=== PATIENT | male | born 1985 | race African-American/Black ===

== ENCOUNTER 2017-12-16 22:01 | Inpatient (IN) | payer SELFPAY ==
[~2017-12-16] VITALS: Ht 175.3 cm; Wt 79.3 kg
[~2017-12-16 22:01] MED LIST: DIVA500T35 PO; OLAN10TA3 PO
[2017-12-16] MEDS ORDERED: ZOLPIDEM TARTRATE 10 MG TABLET PO PRN (23:15)
[2017-12-17] MEDS ORDERED: BREX2TAB PO
[2017-12-17] MEDS: LORazepam 2 MG TABLET PO PRN ×2 (00:43→09:17)
[2017-12-17 01:24] LABS: BASOPHILS % (AUTO) 0.5 % (0.0-2.0); EOSINOPHILS % (AUTO) 0.1 % (1.0-6.0); HEMATOCRIT 48.5 % (41-53); HEMOGLOBIN 16.9 g/dL (13.5-17.5); LYMPHOCYTES # (AUTO) 1.9 K/uL (1.0-4.8); LYMPHOCYTES % (AUTO) 19.8 % (22.0-44.0); MEAN CORPUSCULAR HGB CONC 34.8 G/dL (31.0-37.0); MEAN CORPUSCULAR VOLUME 86 fL (80-100); MONOCYTES # (AUTO) 0.8 K/uL (0.1-1.0); MONOCYTES % (AUTO) 8.1 % (2.0-9.0); NEUTROPHILS % (AUTO) 71.5 % (40.0-70.0); PLATELET COUNT (AUTO) 212 K/uL (150-450); RED BLOOD CELL COUNT(AUTO) 5.62 MIL/uL (4.50-5.90); RED CELL DISTRIBUTION WIDTH 12.8 % (11.5-14.5)
[2017-12-17 01:48] LABS: ANION GAP 13 mmol/L (8-16); CALCIUM, TOTAL 10.4 mg/dL (8.8-10.5); CARBON DIOXIDE 27 mmol/L (22-29); CHLORIDE 104 mmol/L (98-107); CREATININE 1.07 mg/dL (0.60-1.30); GLOMERULAR FILTR. RATE CALC > 60 mL/min (>60); GLUCOSE,RANDOM 129 mg/dL (70-110); POTASSIUM 4.4 mmol/L (3.5-5.1); SODIUM SERUM 144 mmol/L (136-145); UREA NITROGEN, BLOOD 20 mg/dL (7-18)
[2017-12-17 01:53] LABS: ALANINE AMINOTRANSFERASE 50 U/L (12-78); ALBUMIN 4.2 g/dL (3.4-5.0); ALKALINE PHOSPHATASE 88 U/L (46-116); ASPARTATE AMINOTRANSFERASE 19 U/L (15-37); BILIRUBIN,TOTAL 0.9 mg/dL (0.1-1.0); TOTAL PROTEIN, SERUM 8.6 g/dL (6.4-8.2)
[2017-12-17 01:54] LABS: VALPROIC ACID < 3 mcg/mL (50-100)
[2017-12-17 03:11] LABS: CHOL/HDL RATIO 4.6 (4.2-7.3); CHOLESTEROL 253 mg/dL (131-200); HDL CHOLESTEROL 55 mg/dL (40-60); LDL CHOL (CALC.) 185 mg/dL (0-130); TRIGLYCERIDES 64 mg/dL (15-150)
[2017-12-17] MEDS: HALOPERIDOL 5 MG TABLET PO PRN (09:17)
[2017-12-17] MEDS ORDERED: ACETAMINOPHEN 500 MG TABLET PO ONE (12:30)
[2017-12-17 20:12] VITALS: BP 134/98
[2017-12-18] MEDS ORDERED: -PHARMACY VACCINE NOTE- MISC ONE (04:30)
[2017-12-18] MEDS ORDERED: INFLUENZA VIRUS VACCINE QVS 2017-18 (3YR+)/PF 60 MCG/0.5 ML SYRINGE IM ONE (04:30)
[2017-12-18 08:35] VITALS: BP 136/74
[2017-12-18] MEDS: LORazepam 2 MG TABLET PO PRN (09:07)
[2017-12-18] MEDS: HALOPERIDOL 5 MG TABLET PO PRN (09:16)
[2017-12-18] MEDS ORDERED: LOPERAMIDE HCL 2 MG CAPSULE PO PRN (12:15)
[2017-12-18] MEDS ORDERED: GuaiFENesin/D-METHORPHAN [SUGAR-FREE] 200-20MG/10 ML SYRUP UDCUP PO PRN (12:15)
[2017-12-18] MEDS ORDERED: PALIPERIDONE PALMITATE 234 MG/1.5 ML SYRINGE IM ONE (12:15)
[2017-12-18] MEDS ORDERED: MAG HYDROX/AL HYDROX/SIMETH ES 30 ML SUSPENSION UDCUP PO PRN (12:15)
[2017-12-18] MEDS ORDERED: HydrOXYzine PAMOATE 50 MG CAPSULE PO PRN (12:15)
[2017-12-18] MEDS ORDERED: MAGNESIUM HYDROXIDE SUSPENSION 30 ML UDCUP PO PRN (12:15)
[2017-12-18] MEDS ORDERED: ACETAMINOPHEN 325 MG TABLET PO PRN (12:15)
[2017-12-18] MEDS ORDERED: TUBERCULIN, PURIFIED PROTEIN DERIVATIVE 5 TU/0.1 ML SYG ID ONE (12:15)
[2017-12-18] MEDS ORDERED: PROMETHAZINE HCL 25 MG TABLET PO PRN (12:15)
[2017-12-18] MEDS: THIAMINE HCL 100 MG TABLET PO SCH (17:04)
[2017-12-18 19:55] VITALS: BP 131/86
[2017-12-18] MEDS: DIVALPROEX SODIUM 500 MG ER TABLET PO SCH (20:35)
[2017-12-18] MEDS ORDERED: PALIPERIDONE 3 MG ER TABLET PO SCH (21:00)
[2017-12-19] MEDS: LORazepam 2 MG TABLET PO PRN ×2 (08:14→13:06)
[2017-12-19] MEDS: MULTIVITAMINS WITH MINERALS, THERAPEUTIC TABLET PO SCH (08:14)
[2017-12-19] MEDS: THIAMINE HCL 100 MG TABLET PO SCH ×2 (08:14→20:23)
[2017-12-19] MEDS: FOLIC ACID 1 MG TABLET PO SCH (08:14)
[2017-12-19] MEDS: ATORVASTATIN CALCIUM 40 MG TABLET PO SCH (08:17)
[2017-12-19] MEDS: PALIPERIDONE 1.5 MG ER TABLET PO PRN (13:06)
[2017-12-19] MEDS ORDERED: PALI156D IM (15:40)
[2017-12-19] MEDS ORDERED: DIVA500T52 PO (15:40)
[2017-12-19] MEDS: DIVALPROEX SODIUM 500 MG ER TABLET PO SCH (20:28)
[2017-12-20] MEDS: LORazepam 2 MG TABLET PO PRN (07:49)
[2017-12-20] MEDS: PALIPERIDONE 1.5 MG ER TABLET PO PRN (07:49)
[2017-12-20 08:21] VITALS: BP 117/76
[2017-12-20] MEDS: FOLIC ACID 1 MG TABLET PO SCH (08:31)
[2017-12-20] MEDS: ATORVASTATIN CALCIUM 40 MG TABLET PO SCH (08:31)
[2017-12-20] MEDS: THIAMINE HCL 100 MG TABLET PO SCH ×2 (08:31→16:28)
[2017-12-20] MEDS: MULTIVITAMINS WITH MINERALS, THERAPEUTIC TABLET PO SCH (08:31)
[2017-12-20] MEDS ORDERED: ATOR40TA28 PO (12:10)
[2017-12-22] MEDS ORDERED: PALIPERIDONE PALMITATE 156 MG/ML SYRINGE IM ONE (09:00)
== END 2017-12-20 16:45 | disposition home or self-care (01) | DRG 885 ==
LOC: EMS 22:05 → 3EC 12-17 18:50
PROVIDERS: ADMIT Psychiatry & Neurology Psychiatry; ATTEND Psychiatry & Neurology Psychiatry
DX: F20.0 Paranoid schizophrenia (principal); Z91.14 Patient's other noncompliance with medication regimen; E78.5 Hyperlipidemia, unspecified; Z28.21 Immunization not carried out because of patient refusal; Z59.9 Problem related to housing and economic circumstances, unspecified; Z65.3 Problems related to other legal circumstances; Z79.899 Other long term (current) drug therapy; Z91.19 Patient's noncompliance with other medical treatment and regimen; F32.9 Major depressive disorder, single episode, unspecified
CPT/HCPCS: 83036; 99285; G0480

== ENCOUNTER 2018-02-06 12:28 | Emergency (ER) | payer MEDICAID ==
[~2018-02-06] VITALS: Ht 172.7 cm; Wt 81.8 kg
[~2018-02-06 12:28] MED LIST changes: +ATOR40TA28 PO; -DIVA500T35 PO; +DIVA500T52 PO; -OLAN10TA3 PO; +PALI156D IM
[2018-02-06 12:33] VITALS: BP 137/70
== END 2018-02-06 13:31 | disposition left against medical advice (07) ==
LOC: EMS 12:29
DX: F41.9 Anxiety disorder, unspecified (principal); F31.9 Bipolar disorder, unspecified; F20.9 Schizophrenia, unspecified; Z53.21 Procedure and treatment not carried out due to patient leaving prior to being seen by health care provider

== ENCOUNTER 2018-03-11 08:22 | Inpatient (IN) | payer MEDICAID, OTHER ==
[~2018-03-11] VITALS: Ht 175.3 cm; Wt 82.0 kg
[2018-03-11] MEDS ORDERED: OLAN10TA3 PO (08:44)
[2018-03-11 08:50] LABS: BASOPHILS % (AUTO) 0.7 % (0.0-2.0); EOSINOPHILS % (AUTO) 0.2 % (1.0-6.0); HEMATOCRIT 45.7 % (41-53); HEMOGLOBIN 16.3 g/dL (13.5-17.5); LYMPHOCYTES # (AUTO) 1.8 K/uL (1.0-4.8); LYMPHOCYTES % (AUTO) 26.4 % (22.0-44.0); MEAN CORPUSCULAR HEMOGLOBIN 30.6 pg (26.0-34.0); MEAN CORPUSCULAR HGB CONC 35.7 G/dL (31.0-37.0); MEAN CORPUSCULAR VOLUME 86 fL (80-100); MONOCYTES # (AUTO) 0.7 K/uL (0.1-1.0); MONOCYTES % (AUTO) 10.8 % (2.0-9.0); NEUTROPHILS # (AUTO) 4.3 K/uL (1.8-7.7); NEUTROPHILS % (AUTO) 61.9 % (40.0-70.0); PLATELET COUNT (AUTO) 236 K/uL (150-450); RED BLOOD CELL COUNT(AUTO) 5.32 MIL/uL (4.50-5.90)
[2018-03-11 08:55] LABS: ANION GAP 17 mmol/L (8-16); CALCIUM, TOTAL 9.5 mg/dL (8.8-10.5); CARBON DIOXIDE 20 mmol/L (22-29); CHLORIDE 105 mmol/L (98-107); CREATININE 0.96 mg/dL (0.60-1.30); GLOMERULAR FILTR. RATE CALC > 60 mL/min (>60); GLUCOSE,RANDOM 108 mg/dL (70-110); POTASSIUM 3.5 mmol/L (3.5-5.1); SODIUM SERUM 142 mmol/L (136-145); UREA NITROGEN, BLOOD 23 mg/dL (7-18)
[2018-03-11 09:01] LABS: ALANINE AMINOTRANSFERASE 55 U/L (12-78); ALBUMIN 4.3 g/dL (3.4-5.0); ALKALINE PHOSPHATASE 74 U/L (46-116); ASPARTATE AMINOTRANSFERASE 26 U/L (15-37); BILIRUBIN,TOTAL 0.9 mg/dL (0.1-1.0); TOTAL PROTEIN, SERUM 8.9 g/dL (6.4-8.2)
[2018-03-11 11:05] LABS: VALPROIC ACID < 3 mcg/mL (50-100)
[2018-03-11] MEDS ORDERED: HALOPERIDOL 5 MG TABLET PO PRN (11:45)
[2018-03-12] MEDS: RisperiDONE 2 MG TABLET PO SCH ×2 (12:42→21:16)
[2018-03-12] MEDS ORDERED: ACETAMINOPHEN 325 MG TABLET PO PRN (19:30)
[2018-03-12] MEDS ORDERED: CloNIDine HCL 0.1 MG TABLET PO PRN (19:30)
[2018-03-12] MEDS ORDERED: BENZOCAINE/MENTHOL LOZENGE MM PRN (19:30)
[2018-03-12] MEDS ORDERED: ONDANSETRON HCL 4 MG TABLET PO PRN (19:30)
[2018-03-12] MEDS ORDERED: ALBUTEROL SULFATE HFA 90 MCG/PUFF 8 GM INHALER IH PRN (19:30)
[2018-03-12] MEDS ORDERED: BACITRACIN 28.4 GM OINTMENT TP PRN (19:30)
[2018-03-12] MEDS ORDERED: LOPERAMIDE HCL 2 MG CAPSULE PO PRN (19:30)
[2018-03-12] MEDS ORDERED: IBUPROFEN 600 MG TABLET PO PRN (19:30)
[2018-03-12] MEDS ORDERED: PETROLATUM,WHITE 71 GM JELLY TP PRN (19:30)
[2018-03-12] MEDS ORDERED: MAG HYDROX/AL HYDROX/SIMETH ES 30 ML SUSPENSION UDCUP PO PRN (19:30)
[2018-03-12] MEDS ORDERED: MAGNESIUM HYDROXIDE SUSPENSION 30 ML UDCUP PO PRN (19:30)
[2018-03-12] MEDS: DIVALPROEX SODIUM 500 MG ER TABLET PO SCH (21:16)
[2018-03-13] MEDS: ATORVASTATIN CALCIUM 40 MG TABLET PO SCH (08:26)
[2018-03-13] MEDS: DOCUSATE SODIUM 100 MG CAPSULE PO SCH (08:26)
[2018-03-13] MEDS: OMEPRAZOLE 20 MG CAPSULE PO SCH (08:26)
[2018-03-13] MEDS: RisperiDONE 2 MG TABLET PO SCH ×2 (08:26→20:24)
[2018-03-13] MEDS: DIVALPROEX SODIUM 500 MG ER TABLET PO SCH (20:24)
[2018-03-14] MEDS: LORazepam 2 MG TABLET PO PRN (01:15)
[2018-03-14] MEDS: ZOLPIDEM TARTRATE 10 MG TABLET PO PRN ×2 (01:15→20:40)
[2018-03-14 07:32] LABS: CHOL/HDL RATIO 4.8 (4.2-7.3); THYROID STIMULATING HORMONE 1.53 uIU/mL (0.36-3.74)
[2018-03-14] MEDS: ATORVASTATIN CALCIUM 40 MG TABLET PO SCH ×2 (09:00→10:35)
[2018-03-14] MEDS: OMEPRAZOLE 20 MG CAPSULE PO SCH ×2 (09:00→10:35)
[2018-03-14] MEDS: RisperiDONE 2 MG TABLET PO SCH ×3 (09:00→20:40)
[2018-03-14] MEDS: DOCUSATE SODIUM 100 MG CAPSULE PO SCH ×2 (09:00→10:35)
[2018-03-14] MEDS: DIVALPROEX SODIUM 500 MG ER TABLET PO SCH (20:41)
[2018-03-15 02:33] VITALS: BP 127/88
[2018-03-15] MEDS: OMEPRAZOLE 20 MG CAPSULE PO SCH (08:39)
[2018-03-15] MEDS: RisperiDONE 2 MG TABLET PO SCH ×2 (08:39→20:42)
[2018-03-15] MEDS: ATORVASTATIN CALCIUM 40 MG TABLET PO SCH (08:39)
[2018-03-15] MEDS: DOCUSATE SODIUM 100 MG CAPSULE PO SCH (08:39)
[2018-03-15 08:55] VITALS: BP 113/67
[2018-03-15 16:30] VITALS: BP 122/74
[2018-03-15] MEDS: DIVALPROEX SODIUM 500 MG ER TABLET PO SCH (20:42)
[2018-03-16 08:15] VITALS: BP 132/68
[2018-03-16] MEDS: DOCUSATE SODIUM 100 MG CAPSULE PO SCH (09:49)
[2018-03-16] MEDS: OMEPRAZOLE 20 MG CAPSULE PO SCH (09:49)
[2018-03-16] MEDS: CHOLECALCIFEROL (VIT D3) 1,000 UNITS TABLET PO SCH (09:50)
[2018-03-16] MEDS: ATORVASTATIN CALCIUM 40 MG TABLET PO SCH (09:51)
[2018-03-16] MEDS: RisperiDONE 2 MG TABLET PO SCH ×2 (09:51→20:02)
[2018-03-16 18:15] VITALS: BP 128/76
[2018-03-16] MEDS: DIVALPROEX SODIUM 500 MG ER TABLET PO SCH (20:02)
[2018-03-17 08:27] VITALS: BP 119/70
[2018-03-17] MEDS: DOCUSATE SODIUM 100 MG CAPSULE PO SCH (08:34)
[2018-03-17] MEDS: CHOLECALCIFEROL (VIT D3) 1,000 UNITS TABLET PO SCH (08:34)
[2018-03-17] MEDS: RisperiDONE 2 MG TABLET PO SCH ×2 (08:34→20:20)
[2018-03-17] MEDS: ATORVASTATIN CALCIUM 40 MG TABLET PO SCH (08:34)
[2018-03-17] MEDS: OMEPRAZOLE 20 MG CAPSULE PO SCH (08:34)
[2018-03-17] MEDS: LORazepam 2 MG TABLET PO PRN (16:50)
[2018-03-17 18:02] VITALS: BP 144/80
[2018-03-17] MEDS: DIVALPROEX SODIUM 500 MG ER TABLET PO SCH (20:20)
[2018-03-18 08:25] VITALS: BP 126/77
[2018-03-18] MEDS: DOCUSATE SODIUM 100 MG CAPSULE PO SCH (08:26)
[2018-03-18] MEDS: OMEPRAZOLE 20 MG CAPSULE PO SCH (08:26)
[2018-03-18] MEDS: RisperiDONE 2 MG TABLET PO SCH ×2 (08:26→20:17)
[2018-03-18] MEDS: CHOLECALCIFEROL (VIT D3) 1,000 UNITS TABLET PO SCH (08:26)
[2018-03-18] MEDS: ATORVASTATIN CALCIUM 40 MG TABLET PO SCH (08:26)
[2018-03-18 16:31] VITALS: BP 150/72
[2018-03-18] MEDS: DIVALPROEX SODIUM 500 MG ER TABLET PO SCH (20:18)
[2018-03-19 08:25] VITALS: BP 118/70
[2018-03-19] MEDS: DOCUSATE SODIUM 100 MG CAPSULE PO SCH (08:36)
[2018-03-19] MEDS: CHOLECALCIFEROL (VIT D3) 1,000 UNITS TABLET PO SCH (08:36)
[2018-03-19] MEDS: OMEPRAZOLE 20 MG CAPSULE PO SCH (08:36)
[2018-03-19] MEDS: RisperiDONE 2 MG TABLET PO SCH (08:36)
[2018-03-19] MEDS: ATORVASTATIN CALCIUM 40 MG TABLET PO SCH (08:37)
[2018-03-19] MEDS ORDERED: RISP2 PO (08:39)
[2018-03-19] MEDS ORDERED: DIVA500T52 PO (08:39)
[2018-03-19] MEDS ORDERED: VITAD1000 PO (14:02)
[2018-03-19] MEDS ORDERED: DSS100 PO (14:02)
[2018-03-19] MEDS ORDERED: OMEP20 PO (14:02)
[2018-03-19 16:39] VITALS: BP 126/89
== END 2018-03-19 18:00 | disposition home or self-care (01) | DRG 750 ==
LOC: EMS 08:23 → 3EC 18:06
DX: F20.0 Paranoid schizophrenia (principal); Z91.14 Patient's other noncompliance with medication regimen; E55.9 Vitamin D deficiency, unspecified; E78.5 Hyperlipidemia, unspecified; F94.0 Selective mutism; G47.00 Insomnia, unspecified; F31.9 Bipolar disorder, unspecified; K59.00 Constipation, unspecified; Z79.899 Other long term (current) drug therapy
CPT/HCPCS: 82306; 84443; 87081; 99285; G0480